=== PATIENT | male | born 1980 | race Caucasian/White ===

== ENCOUNTER 2017-04-30 19:59 | Emergency (ER) | payer BC ==
--- NOTE | 2017-04-30 20:07 | PDOC ---
History of Present Illness - General History Source: Patient Exam Limitations: No Limitations - History of Present Illness Initial Comments: 04/30/17 20:14 A portion of this note was documented by scribe services under my direction. I have reviewed the details of the note, within reason, and agree with the documentation. The case summary and management plan written by me. Assessment and plan: This is a 37-year-old male who injured his right knee playing basketball approximately 10 hours prior to coming to the emergency room. Patient has been able to walk and bear weight on that leg all day with minimal discomfort until this evening. Patient took a Tylenol prior to coming in for evaluation. On exam patient's knee was mildly swollen primarily laterally with some ligamentous instability of the MCL. Patient put in Lites are and given crutches. Patient started on ibuprofen for the pain and told to not bear weight and use his crutches and follow-up with an orthopedist on Tuesday <Richard Simeon I - Last Filed: 04/30/17 20:14> - General History Source: Old Records Exam Limitations: No Limitations - History of Present Illness Initial Comments: 04/30/17 20:22 The patient is a 37 year old male with no significant past medical history of who presents to the emergency department today with right knee pain since this morning. The patient was playing basketball when someone stepped on his right foot and fell into his knee, hyperextending his knee. The patient states that he had been walking all day but his pain began worsening 2 hours ago and that he took tylenol 1 hour ago with no relief of symptoms. PAST MEDICAL HISTORY: No significant history reported PAST SURGICAL HISTORY: No significant history reported FAMILY HISTORY: No pertinent history reported SOCIAL HISTORY: None reported ALLERGIES: As per nursing notes MEDICATIONS: Reviewed <Cale Valdes - Last Filed: 04/30/17 20:23> - General Chief Complaint: Injury Stated Complaint: RT KNEE PAIN Time Seen by Provider: 04/30/17 20:06 Past History - Psycho/Social/Smoking Cessation Hx Suicidal Ideation: No Smoking History: Never smoked <Richard Simeon I - Last Filed: 04/30/17 20:14> <Cale Valdes - Last Filed: 04/30/17 20:23> - Past Medical History Allergies/Adverse Reactions: Allergies Allergy/AdvReac Type Severity Reaction Status Date / Time No Known Allergies Allergy Unverified 04/30/17 20:03 Home Medications: Ambulatory Orders Acetaminophen 650 mg PO ONCE 04/30/17 Review of Systems - Review of Systems Able to Perform ROS?: Yes Comments:: 04/30/17 20:23 General: No fevers or chills, no weakness, no weight loss HEENT: No change in vision. No sore throat, No ear pain CardioVascular: No chest pain or shortness of breath Respiratory:No cough, or wheezing. Gastrointestinal: no nausea, vomiting, diarrhea or constipation, No rectal bleeding Genitourinary: No dysuria, hematuria, or frequency Musculoskeletal: (+) Right knee pain. No muscle pain or swelling Neurologic: No headache, vertigo, dizziness or loss of consciousness Psychiatric: nor depression Skin: No rashes or easy bruising Endocrine: no increased thirst or abnormal weight change Allergic: no skin or latex allergy All other systems reviewed and normal <Cale Valdes - Last Filed: 04/30/17 20:23> *Physical Exam - Vital Signs Last Vital Signs Temp Pulse Resp BP Pulse Ox 98.3 F 68 18 100/65 100 04/30/17 20:04 04/30/17 20:04 04/30/17 20:04 04/30/17 20:04 04/30/17 20:04 <Richard Simeon I - Last Filed: 04/30/17 20:14> - Vital Signs Last Vital Signs Temp Pulse Resp BP Pulse Ox 98.3 F 68 18 100/65 100 04/30/17 20:04 04/30/17 20:04 04/30/17 20:04 04/30/17 20:04 04/30/17 20:04 - Physical Exam Comments: 04/30/17 20:23 General: Well-nourished well-developed individual, no acute distress HEENT: Throat: Normal, tonsils normal, no erythema or exudate Neck: Supple, no meningeal signs, no lymphadenopathy Eyes::Pupils equal reactive and round, extraocular motion intact Chest: Nontender to palpation Cardiac: S1-S2 normal, regular rate and rhythm, no murmurs rubs or gallops Respiratory: Lungs clear to auscultation bilateral Abdomen: Soft, nondistended, normal bowel sounds, nontender to palpation diffusely Extremities: (+) Warm, dry, no cyanosis, clubbing. Tenderness and swelling on palpation of medial knee with palpable formation. Ligamentous instability of MCL. Skin: No rashes Neuro: Alert and oriented x3, nonfocal exam, grossly intact, normal gait Psych: Normal mood and affect <Cale Valdes - Last Filed: 04/30/17 20:23> *DC/Admit/Observation/Transfer <Richard Simeon I - Last Filed: 04/30/17 20:14> - Attestations Scribe Attestion: 04/30/17 20:23 Documentation prepared by Cale Valdes, acting as medical staff manager for Richard Simeon MD. <Cale Valdes - Last Filed: 04/30/17 20:23> Diagnosis at time of Disposition: Injury of ligament of right knee Qualifiers: Encounter type: initial encounter Qualified Code(s): S89.91XA - Unspecified injury of right lower leg, initial encounter - Discharge Dispostion Disposition: HOME Condition at time of disposition: Stable - Patient Instructions Printed Discharge Instructions: How to Use a Knee Immobilizer Additional Instructions: Wear the knee immobilizer while awake do not need to wear it in bed at night. For the pain take ibuprofen 600 mg 3 times a day with food don't take on an empty stomach. Follow-up with Dr. Collier call him Tuesday morning at [phone] for an appointment. Rest the knee is much as possible, ice it for 20 minutes 3 times a day for the next 2 days. Return to the emergency department immediately with ANY new, persistent or worsening symptoms. Continue any medications as previously prescribed by your physician. You should follow up with your primary doctor as soon as possible regarding today's emergency department visit. . Please make sure your doctor reviews the results of your emergency evaluation. Thank you for coming to the Emergency Department today for your care. It was a pleasure to see you today. Please note that your evaluation is INCOMPLETE until you follow-up with your doctor.
[2017-04-30 20:09] VITALS: BP 100/65; PULSE 68; TEMP 98.3; BMI 22.4
[2017-04-30] MEDS ORDERED: IBUPROFEN 600 MG TABLET (FP) PO ONE ×2 (20:13→20:22)
== END 2017-04-30 20:23 | disposition home or self-care (01) ==
LOC: FER 19:59
PROC: 2W3LX1Z Immobilization of Right Lower Extremity using Splint (ICD-10-PCS; principal; 2017-04-30)
DX: S89.91XA Unspecified injury of right lower leg, initial encounter (principal); X58.XXXA Exposure to other specified factors, initial encounter; Y93.67 Activity, basketball; Y92.310 Basketball court as the place of occurrence of the external cause
CPT/HCPCS: 99282-25